=== PATIENT | male | born 1990 ===

== ENCOUNTER 2016-06-28 23:10 | Emergency (ER) | payer OTHER ==
[2016-06-28 23:24] VITALS: RESP 18; TEMP 98.8
[2016-06-28] MEDS ORDERED: KETOROLAC TROMETHAMINE 30 MG/ML SOL IM ONE (23:37)
[2016-06-28] MEDS ORDERED: KETOROLAC TROMETHAMINE 30 MG/ML SOL ONE (23:38)
[2016-06-29 00:09] VITALS: BP 132/79; PULSE 75; O2SAT 98
[2016-06-29] MEDS ORDERED: APAP/HYDROCODONE 325/5 TAB PO ONE (00:25)
[2016-06-29] MEDS ORDERED: APAP/HYDROCODONE 325/5 TAB ONE (00:27)
== END 2016-06-29 00:55 | disposition home or self-care (01) ==
LOC: ED 23:10
DX: M25.561 Pain in right knee (principal); M25.461 Effusion, right knee; X50.1XXA Overexertion from prolonged static or awkward postures, initial encounter; Y93.67 Activity, basketball; S76.111A Strain of right quadriceps muscle, fascia and tendon, initial encounter; S70.11XA Contusion of right thigh, initial encounter; S83.014S Lateral dislocation of right patella, sequela
CPT/HCPCS: 99284 ×3; 73721; 96372; 99282; E0114; J1885; L1830; 73562

== ENCOUNTER 2016-09-20 21:55 | Emergency (ER) | payer OTHER ==
[2016-09-20 21:56] VITALS: O2SAT 98
[2016-09-20] MEDS ORDERED: LORAZEPAM 2 MG/ML SOL IV ONE (22:11)
[2016-09-20] MEDS ORDERED: LORAZEPAM 2 MG/ML SOL ONE (22:16)
== END 2016-09-20 22:32 | disposition left against medical advice (07) ==
LOC: ED 21:55
DX: R45.1 Restlessness and agitation (principal)
CPT/HCPCS: 99283 ×2; J2060; 96374; 99281

== ENCOUNTER 2016-10-22 17:50 | Emergency (ER) | payer OTHER ==
[2016-10-22 17:55] VITALS: TEMP 98.6
[2016-10-22 18:10] LABS: BASOPHILS % (AUTO) 1 % (0-3); EOSINOPHILS % (AUTO) 7 % (0-9); HEMATOCRIT 46 % (39-53); MEAN CORPUSCULAR HGB CONC 34.5 gm/dl (32.0-36.0); MEAN CORPUSCULAR VOLUME 85 fL (80-100); MONOCYTES % (AUTO) 10.6 % (0-12); NEUTROPHILS % (AUTO) 55.1 % (37-80)
[2016-10-22 18:33] LABS: ALBUMIN 3.7 gm/dl (3.4-5.0); CALCIUM 8.9 mg/dl (8.5-10.1); POTASSIUM 3.8 mMol/L (3.5-5.1); THYROID STIMULATING HORMONE 0.375 uIU/ml (0.358-3.740)
[2016-10-22 19:28] VITALS: RESP 20
[2016-10-22 20:03] VITALS: BP 132/62; PULSE 64; O2SAT 99
== END 2016-10-22 19:48 ==
LOC: ED 17:50 → ACUTE CARE 19:31 → UNDOADMOB 19:31 → ED 19:48
DX: F11.10 Opioid abuse, uncomplicated (principal)
CPT/HCPCS: 36415; 80053; 80307; 84443; 85025; 99283

== ENCOUNTER 2017-04-05 18:08 | Emergency (ER) | payer OTHER ==
[2017-04-05 18:22] VITALS: BP 162/96; PULSE 101; RESP 16; TEMP 97.6; O2SAT 100
== END 2017-04-05 18:30 ==
LOC: ED 18:08
DX: F11.90 Opioid use, unspecified, uncomplicated (principal); F15.90 Other stimulant use, unspecified, uncomplicated
CPT/HCPCS: 99282

== ENCOUNTER 2017-06-12 02:00 | Emergency (ER) | payer OTHER ==
[2017-06-12] MEDS ORDERED: DIPHENHYDRAMINE 50 MG/ML SOL IV ONE (02:08)
[2017-06-12] MEDS ORDERED: ALBUTEROL NEB SOL 2.5MG/3ML 1 VIAL SOL NEB ONE (02:08)
[2017-06-12] MEDS ORDERED: DIPHENHYDRAMINE 50 MG/ML SOL ONE (02:09)
[2017-06-12] MEDS ORDERED: ALBUTEROL NEB SOL 2.5MG/3ML 1 VIAL SOL ONE (02:09)
[2017-06-12] MEDS: SODIUM CHLORIDE 0.9% FLUSH 10 ML SOL IV PRN ×2 (02:11→02:18)
[2017-06-12] MEDS ORDERED: SOLUMEDROL 125 MG/2 ML 125 MG/2 ML PDS IV ONE (02:14)
[2017-06-12] MEDS ORDERED: SOLUMEDROL 125 MG/2 ML 125 MG/2 ML PDS ONE (02:15)
[2017-06-12] MEDS ORDERED: EPINEPHRINE 0.3 MG/0.3 ML KIT SC PRN ×2 (02:28→02:39)
[2017-06-12] MEDS ORDERED: EPINEPHRINE 1:1000 AMP 1 MG/ML SOL ONE (02:30)
[2017-06-12] MEDS ORDERED: EPINEPHRINE 1:1000 AMP 1 MG/ML SOL IM PRN (02:39)
[2017-06-12 02:52] VITALS: TEMP 97.2
[2017-06-12 02:53] VITALS: PULSE 80; RESP 24
[2017-06-12 03:04] VITALS: BP 137/80; O2SAT 97
== END 2017-06-12 03:10 | disposition home or self-care (01) ==
LOC: ED 02:00
DX: T78.40XA Allergy, unspecified, initial encounter (principal)
CPT/HCPCS: 99285; J1200; J2930; J7613

== ENCOUNTER 2017-09-12 04:15 | Emergency (ER) | payer OTHER ==
[2017-09-12 04:30] VITALS: TEMP 99.9
[2017-09-12] MEDS ORDERED: SODIUM CHLORIDE 0.9% 1000ML 1,000 ML IV ONE (04:30)
[2017-09-12 04:54] LABS: BASOPHILS % (AUTO) 2 % (0-3); EOSINOPHILS % (AUTO) 1 % (0-9); HEMATOCRIT 45 % (39-53); HEMOGLOBIN 16.8 gm/dl (13.5-17.7); LYMPHOCYTES % (AUTO) 17.1 % (10-50); MEAN CORPUSCULAR HEMOGLOBIN 30.5 pg (27.0-32.0); MEAN CORPUSCULAR HGB CONC 37.2 gm/dl (32.0-36.0); MEAN CORPUSCULAR VOLUME 82 fL (80-100); MONOCYTES % (AUTO) 7.5 % (0-12); NEUTROPHILS % (AUTO) 72.2 % (37-80)
[2017-09-12] MEDS ORDERED: SODIUM CHLORIDE 0.9% FLUSH 10 ML SOL IV PRN (05:11)
[2017-09-12 05:12] LABS: ACETAMINOPHEN < 2 ug/ml (10-30); ALBUMIN 4.3 gm/dl (3.4-5.0); ALKALINE PHOSPHATASE 61 IU/L (46-116); ALT 122 IU/L (14-63); AST 59 IU/L (15-37); BILIRUBIN,TOTAL 1.9 mg/dl (0.2-1.0); BLOOD UREA NITROGEN 14 mg/dl (7-18); CALCIUM 8.6 mg/dl (8.5-10.1); CARBON DIOXIDE 24.5 mEq/L (21-32); CHLORIDE 102 mMol/L (98-107); GLOM FILT RATE 91 mL/min (>60); GLUCOSE 115 mg/dl (74-106); POTASSIUM 3.6 mMol/L (3.5-5.1); SODIUM 140 mMol/L (136-145); TOTAL PROTEIN 7.1 gm/dl (6.4-8.2)
[2017-09-12 05:13] LABS: NORMAL RBCS NORMAL RBCS
[2017-09-12 05:24] LABS: AMPHETAMINES POSITIVE (NEGATIVE); BARBITUATES NEGATIVE (NEGATIVE); BENZODIAZEPINES NEGATIVE (NEGATIVE); CANNABINOL(THC) NEGATIVE (NEGATIVE); COCAINE(COC) NEGATIVE (NEGATIVE); METHADONE NEGATIVE (NEGATIVE); METHAMPHETAMINES POSITIVE (NEGATIVE); OPIATES(OP13) POSITIVE (NEGATIVE); OXYCODONE(OXY) NEGATIVE (NEGATIVE); PROPOXYPHENE(PPX) NEGATIVE (NEGATIVE); TRICYCLIC ANTIDEPRESSANTS NEGATIVE (NEGATIVE)
[2017-09-12 06:22] VITALS: RESP 20
[2017-09-12 06:23] VITALS: BP 147/65; PULSE 126; O2SAT 95
== END 2017-09-12 05:59 | disposition home or self-care (01) ==
LOC: ED 04:15
DX: F15.10 Other stimulant abuse, uncomplicated (principal)
CPT/HCPCS: 36415; 80053; 80305; 80307; 85025; 93005; 96365; 99282; 99284